=== PATIENT | male | born 1965 | race Caucasian/White ===

== ENCOUNTER 2023-11-01 08:53 | Outpatient (CLI) | payer BC | END 2023-11-01 08:54 | disposition home or self-care (01) | LOC: CT 08:53 | PROVIDERS: ATTEND Internal Medicine Hematology & Oncology | DX: C21.1 Malignant neoplasm of anal canal (principal) | CPT/HCPCS: 71260; 74177; Q9967 ==

== ENCOUNTER 2024-03-19 07:31 | Outpatient (CLI) | payer BC ==
[2024-03-19] MEDS ORDERED: Iopamidol 370 76% 100 ML VIAL ONE (10:36)
== END 2024-03-19 07:32 | disposition home or self-care (01) ==
LOC: BICCT 07:31
PROVIDERS: ATTEND Radiology Radiation Oncology
DX: C21.1 Malignant neoplasm of anal canal (principal)
CPT/HCPCS: 71260; 74177; 82565

== ENCOUNTER 2025-03-20 12:35 | Outpatient (CLI) | payer BC ==
[2025-03-20 13:05] LABS: Estimated GFR - POC 69.0
[2025-03-20] MEDS ORDERED: Iopamidol 370 76% 100 ML VIAL ONE (14:00)
== END 2025-03-20 12:36 | disposition home or self-care (01) ==
LOC: CT 12:35
PROVIDERS: ATTEND Radiology Radiation Oncology
DX: C21.1 Malignant neoplasm of anal canal (principal)
CPT/HCPCS: 36415; 71260; 74177; 82565; Q9967